=== PATIENT | female | born 1950 | race African-American/Black ===

== ENCOUNTER → 2016-09-30 | Outpatient (CLI) | payer MEDICARE, OTHER ==
[2016-09-30 15:00] LABS: POC - CREATININE 0.89 mg/dL (0.44-1.03); POC - GFR >60.0 mL/min (>60)
== END | disposition home or self-care (01) ==
LOC: SMRI 10:50
PROVIDERS: Internal Medicine
DX: M79.605 Pain in left leg (principal); Z89.612 Acquired absence of left leg above knee
CPT/HCPCS: 82565; 82947